=== PATIENT | female | born 1975 | race Caucasian/White ===

== ENCOUNTER 2022-02-25 16:24 | Outpatient (CLI) | payer OTHER | END 2022-02-25 16:25 | disposition home or self-care (01) | LOC: BICRAD 16:24 | PROVIDERS: ATTEND Nurse Practitioner Family | DX: M25.532 Pain in left wrist (principal) ==

== ENCOUNTER 2022-12-22 12:36 | Emergency (ER) | payer SELFPAY ==
[~2022-12-22 12:36] MED LIST: Iopamidol-370 76% 500 ML MDV (1 ML CHARGE) ONE
[2022-12-22 13:18] LABS: Hematocrit 38.6 % (36.0-47.0); Hemoglobin 12.8 g/dL (12.0-16.0); Manual Diff?? YES; Mean Corpuscular HGB CONC 33.2 g/dL (32.0-36.0); Mean Corpuscular Hemoglobin 33.6 pg (27.0-31.0); Mean Corpuscular Volume 101.3 fl (78.0-98.0); Platelet Count 276 10x3/uL (130-400); Red Blood Cell (RBC) Count 3.81 mill/uL (4.20-5.40); White Blood Cell (WBC) Count 5.9 10x3/uL (4.8-10.8)
[2022-12-22 13:29] LABS: Delete Auto Diff?? YES
[2022-12-22 13:52] LABS: ALT (SGPT) 24 U/L (8-55); AST (SGOT) 24 U/L (5-34); Albumin 4.6 g/dL (3.5-5.0); Alkaline Phosphatase 58 U/L (40-110); Anion Gap 16 mmol/L (10-20); BUN (Urea Nitrogen) 11 mg/dL (7.0-18.7); Bilirubin, Total 0.5 mg/dL (0.2-1.2); Calc. Creatinine Clearance 0 mL/min (70-130); Calcium 9.8 mg/dL (7.8-10.44); Carbon Dioxide 25 mmol/L (22-29); Chloride 104 mmol/L (98-107); Estimated GFR 88; Globulin 2.1 g/dL (2.4-3.5); Glucose 88 mg/dL (70-105); Lipase 37 U/L (8-78); Potassium 4.1 mmol/L (3.5-5.1); Protein, Total 6.7 g/dL (6.0-8.3); Sodium 141 mmol/L (136-145)
[2022-12-22 14:04] LABS: Band 2 % (5-11); CellaVision Operator ID LAB.GE; Eosinophils 30 % (0-10); Large Platelets 1.7 % (0-5); Lymphocytes 28 % (21-51); Monocytes 9 % (0-10); Neutrophil 29 % (42-75); Platelet Adequacy Comment Platelets Normal; Polychromasia SLIGHT = 2-3 cells HPF (0-2); Reactive Lymphocytes 2 % (0-10); Total Cell Count 116
[2022-12-22] MEDS ORDERED: Ketorolac Tromethamine 30 MG/ML VIAL ONE (15:38)
[2022-12-22 15:58] LABS: BHCG - Serum Negative (NEGATIVE); Pregs Control Background? CLEAR/WHITE (CLR/WHITE); Pregs Control Bar Appear? YES (CONTROL BAR)
[2022-12-22 16:43] LABS: Bilirubin Negative (Negative); Blood, Urine Negative (Negative); CAUTI Indications for Culture Pelvic or flank pain; Clarity Clear (Clear); Glucose, Urine (Dipstick) Normal (Negative); Ketone, Urine Negative (Negative); Leukocyte Negative Leu/uL (Negative); Nitrite Negative (Negative); Protein, Urine (Dipstick) Negative (Neg-Trace); RBC/HPF 0-3 HPF (0-3); Specific Gravity, Urine 1.017 (1.002-1.036); Squamous Epithelial 0-3 HPF (0-3); Urobilinogen Normal mg/dL (Less than 2); WBC/HPF 0-3 HPF (0-3); pH, Urine 5.5 (5.0-9.0)
[2022-12-22 16:45] LABS: Bacteria/HPF 1+ HPF (None Seen)
[2022-12-22 16:46] LABS: Urine Culture Reflex No No
== END 2022-12-22 17:33 | disposition home or self-care (01) ==
LOC: ERS 12:36
DX: R10.13 Epigastric pain (principal); F17.290 Nicotine dependence, other tobacco product, uncomplicated
CPT/HCPCS: 36415; 74177; 80053; 81001; 83690; 84703; 85025; 96374; J1885; Q9967